=== PATIENT | female | born 1945 | race African-American/Black ===

== ENCOUNTER 2018-11-08 23:14 | Inpatient (IN) | payer MEDICARE, OTHER ==
[~2018-11-08] VITALS: Ht 162.6 cm; Wt 66.7 kg
[~2018-11-08 23:14] MED LIST: BIMA2.5D4 EACHEYE; CHOL100044 GT; DICL30AD TP; MAGN500C4 PO; MECL-109 PO; NEBI5TAB3 PO; OCD PO; OLME40TA11 PO; PROT40 PO
[2018-11-09] MEDS ORDERED: SODIUM CHLORIDE 0.9% 1,000 ML IV ONE (00:42)
[2018-11-09 01:28] LABS: BASOPHILS % 0.5 % (0.0-2.0); EOSINOPHILS % 0.1 % (0.0-5.0); HEMATOCRIT. 41.3 % (36.0-48.0); HEMOGLOBIN. 13.8 g/dL (12.0-16.0); LYMPHOCYTES % 9.3 % (20.0-50.0); MEAN CORPUSCULAR HEMOGLOBIN 29.9 pg (28.0-32.0); MEAN CORPUSCULAR VOLUME 89.2 fL (81.0-99.0); MEAN PLATELET VOLUME 10.2 fl (7.4-10.4); MONOCYTES % 7.9 % (2.0-8.0); NEUTROPHILS % 82.2 % (40.0-76.0); PLATELET 164 x1000/uL (130-400); RED BLOOD CELL COUNT 4.63 mill/uL (4.2-5.4); RED CELL DISTRIBUTION WIDTH 13.6 % (11.6-14.6)
[2018-11-09 01:31] LABS: CHLORIDE 103 mEq/L (98-107)
[2018-11-09] MEDS ORDERED: ASPIRIN 81MG TABLET PO ONE (02:15)
[2018-11-09 02:31] LABS: INR 1.2; PARTIAL THROMBOPLASTIN TIME 28.9 sec (23.4-31.0); PROTHROMBIN TIME 12.3 sec (9.1-11.1)
[2018-11-09 04:04] LABS: CLARITY URINE CLOUDY (CLEAR); COLOR URINE YELLOW (YELLOW); KETONES URINE NEGATIVE (NEGATIVE); LEUKOCYTE ESTERASE URINE NEGATIVE (NEGATIVE); NITRITE URINE NEGATIVE (NEGATIVE); OCCULT BLOOD URINE NEGATIVE (NEGATIVE); PH URINE 6.5 (4.5-8.0); PROTEIN URINE NEGATIVE (NEGATIVE); SPECIFIC GRAVITY URINE 1.012 (1.005-1.030)
[2018-11-09] MEDS ORDERED: ACETAMINOPHEN 500MG TABLET PO ONE (06:15)
[2018-11-09] MEDS ORDERED: MAGNESIUM/ALUMINUM HYDROXIDE/SIMETHICONE 30ML UDC PO PRN (12:00)
[2018-11-09] MEDS ORDERED: DOCUSATE SODIUM 100MG CAPSULE PO PRN (12:00)
[2018-11-09] MEDS ORDERED: CLONIDINE 0.1MG TABLET PO PRN (12:00)
[2018-11-09] MEDS ORDERED: ONDANSETRON HCL 4MG/2ML INJ IV PRN (12:00)
[2018-11-09] MEDS ORDERED: HYDRALAZINE 20MG/ML VIAL IV PRN (12:00)
[2018-11-09] MEDS ORDERED: DIPHENHYDRAMINE 50MG/ML VIAL IV PRN (12:00)
[2018-11-09] MEDS ORDERED: HYDROMORPHONE HCL/PF 2MG/ML CPJ IV PRN (12:00)
[2018-11-09] MEDS ORDERED: LORAZEPAM 2MG/ML CPJ IV PRN (12:00)
[2018-11-09 12:22] VITALS: BP 146/53
[2018-11-09] MEDS: GUAIFENESIN 200MG/10ML SUGAR FREE UDC PO PRN ×2 (14:18→21:01)
[2018-11-09] MEDS: HYDROCODONE/ACETAMINOPHEN 10/325MG TABLET PO PRN (14:19)
[2018-11-09] MEDS: ENOXAPARIN 40MG/0.4ML SYR SUBCUT SCH (14:20)
[2018-11-09] MEDS: SODIUM CHLORIDE 0.9% INJ 3ML FLUSH IVF SCH ×2 (14:21→22:00)
[2018-11-09 16:01] LABS: CREATINE KINASE MB FRACTION 2.1 ng/mL (0.5-3.6)
[2018-11-09] MEDS: LEVOFLOXACIN 500MG PREMIX 100 ML IV SCH (16:14)
[2018-11-09 20:00] VITALS: BP 116/76
[2018-11-09 23:44] LABS: CREATINE KINASE MB FRACTION 1.6 ng/mL (0.5-3.6)
[2018-11-10] VITALS: BP 118/49
[2018-11-10 04:00] VITALS: BP 138/48
[2018-11-10] MEDS: ACETAMINOPHEN 325MG TABLET PO PRN (04:41)
[2018-11-10] MEDS: SODIUM CHLORIDE 0.9% INJ 3ML FLUSH IVF SCH ×3 (04:41→22:55)
[2018-11-10 06:07] LABS: BASOPHILS % 0.3 % (0.0-2.0); EOSINOPHILS % 0.3 % (0.0-5.0); HEMATOCRIT. 35.3 % (36.0-48.0); HEMOGLOBIN. 11.8 g/dL (12.0-16.0); LYMPHOCYTES % 19.1 % (20.0-50.0); MEAN CORPUSCULAR HEMOGLOBIN 29.7 pg (28.0-32.0); MEAN CORPUSCULAR VOLUME 88.8 fL (81.0-99.0); MONOCYTES % 10.5 % (2.0-8.0); NEUTROPHILS % 69.8 % (40.0-76.0); PLATELET 137 x1000/uL (130-400); RED BLOOD CELL COUNT 3.97 mill/uL (4.2-5.4); RED CELL DISTRIBUTION WIDTH 13.9 % (11.6-14.6)
[2018-11-10 06:59] LABS: CHLORIDE 104 mEq/L (98-107)
[2018-11-10 07:10] LABS: LDL CHOLESTEROL 27 mg/dL (5-100)
[2018-11-10 07:11] LABS: HDL CHOLESTEROL 42 mg/dL (40-59); T4 FREE 1.11 ng/dL (0.76-1.46)
[2018-11-10] MEDS ORDERED: REGADENOSON 0.4 MG/5 ML IV SCH (07:30)
[2018-11-10 08:00] VITALS: BP 120/53
[2018-11-10] MEDS ORDERED: ASPIRIN 81MG EC TABLET PO SCH (09:00)
[2018-11-10] MEDS ORDERED: REGADENOSON 0.4 MG/5 ML IV ONE (09:44)
[2018-11-10] MEDS ORDERED: POTASSIUM CHLORIDE 20MEQ TABLET SR PO NR (10:00)
[2018-11-10] MEDS: ASPIRIN 81MG TABLET PO SCH (10:55)
[2018-11-10] MEDS: ENOXAPARIN 40MG/0.4ML SYR SUBCUT SCH (10:56)
[2018-11-10] MEDS: HYDROCODONE/ACETAMINOPHEN 10/325MG TABLET PO PRN (11:14)
[2018-11-10 12:00] VITALS: BP 115/52
[2018-11-10 16:00] VITALS: BP 98/44
[2018-11-10] MEDS: LEVOFLOXACIN 500MG PREMIX 100 ML IV SCH (16:04)
[2018-11-11] VITALS (9 sets, daily range): BP systolic 105–147; BP diastolic 48–77
[2018-11-11] MEDS: ACETAMINOPHEN 325MG TABLET PO PRN (00:12)
[2018-11-11 00:37] LABS: *AMPHETAMINES SCREEN URINE NEGATIVE (NEGATIVE); *BARBITURATES SCREEN URINE NEGATIVE (NEGATIVE)
[2018-11-11 00:38] LABS: *BENZODIAZEPINES SCREEN URINE NEGATIVE (NEGATIVE); *COCAINE SCREEN URINE NEGATIVE (NEGATIVE); CANNABINOID URINE SCREEN NEGATIVE (NEGATIVE); METHADONE URINE SCREEN NEGATIVE (NEGATIVE); OPIATES URINE SCREEN PRESUMTIVE POSITIVE (NEGATIVE); PHENCYCLIDINE URINE SCREEN NEGATIVE (NEGATIVE)
[2018-11-11 01:56] LABS: CREATINE KINASE MB FRACTION 1.2 ng/mL (0.5-3.6)
[2018-11-11 06:49] LABS: CREATINE KINASE 365 IU/L (26-192)
[2018-11-11] MEDS: ASPIRIN 81MG TABLET PO SCH (09:36)
[2018-11-11] MEDS: ENOXAPARIN 40MG/0.4ML SYR SUBCUT SCH (09:36)
[2018-11-11] MEDS: GUAIFENESIN 200MG/10ML SUGAR FREE UDC PO PRN (09:37)
[2018-11-11] MEDS: SODIUM CHLORIDE 0.9% INJ 3ML FLUSH IVF SCH ×2 (14:44→21:46)
[2018-11-11] MEDS: LEVOFLOXACIN 500MG PREMIX 100 ML IV SCH (14:45)
[2018-11-11] MEDS: IPRATROPIUM/ALBUTEROL 0.5-3(2.5)MG/3ML NEB INH PRN (20:39)
[2018-11-12] MEDS: IPRATROPIUM/ALBUTEROL 0.5-3(2.5)MG/3ML NEB INH PRN ×2 (00:27→04:30)
[2018-11-12 04:00] VITALS: BP 142/61
[2018-11-12] MEDS: HYDROCODONE/ACETAMINOPHEN 10/325MG TABLET PO PRN (04:45)
[2018-11-12] MEDS: SODIUM CHLORIDE 0.9% INJ 3ML FLUSH IVF SCH ×2 (05:49→13:05)
[2018-11-12 07:42] LABS: BASOPHILS % 0.6 % (0.0-2.0); EOSINOPHILS % 0.8 % (0.0-5.0); HEMATOCRIT. 35.8 % (36.0-48.0); HEMOGLOBIN. 11.9 g/dL (12.0-16.0); LYMPHOCYTES % 26.2 % (20.0-50.0); MEAN CORPUSCULAR HEMOGLOBIN 29.3 pg (28.0-32.0); MEAN CORPUSCULAR VOLUME 88.1 fL (81.0-99.0); MEAN PLATELET VOLUME 9.2 fl (7.4-10.4); MONOCYTES % 12.8 % (2.0-8.0); NEUTROPHILS % 59.6 % (40.0-76.0); PLATELET 170 x1000/uL (130-400); RED BLOOD CELL COUNT 4.06 mill/uL (4.2-5.4); RED CELL DISTRIBUTION WIDTH 13.6 % (11.6-14.6)
[2018-11-12 08:00] VITALS: BP_SYST 101; BP_SYST 118; BP_SYST 136; BP_DIAS 57; BP_DIAS 63; BP_DIAS 72
[2018-11-12] MEDS: ENOXAPARIN 40MG/0.4ML SYR SUBCUT SCH (09:21)
[2018-11-12] MEDS: ASPIRIN 81MG TABLET PO SCH (09:21)
[2018-11-12 09:56] LABS: CHLORIDE 105 mEq/L (98-107)
[2018-11-12] MEDS ORDERED: POTASSIUM CHLORIDE 20MEQ TABLET SR PO NR (11:15)
[2018-11-12 12:00] VITALS: BP 116/65
[2018-11-12 12:25] VITALS: BP 116/65
[2018-11-12] MEDS ORDERED: LEVOFLOXACIN 500MG TABLET PO SCH (17:00)
== END 2018-11-12 16:22 | disposition home health service (06) | DRG 282 ==
LOC: ER 23:14 → 7WST 11-09 02:28 → EDBEDREQ 11-09 02:30 → EDBEDREQTM 11-09 02:30 → ENRESERV 11-09 10:38
PROVIDERS: ADMIT Internal Medicine; ATTEND Internal Medicine
DX: I21.4 Non-ST elevation (NSTEMI) myocardial infarction (principal); I10 Essential (primary) hypertension; J32.0 Chronic maxillary sinusitis; K21.9 Gastro-esophageal reflux disease without esophagitis; K58.9 Irritable bowel syndrome, unspecified; E87.6 Hypokalemia; R29.6 Repeated falls; M19.071 Primary osteoarthritis, right ankle and foot; I27.20 Pulmonary hypertension, unspecified; M25.571 Pain in right ankle and joints of right foot; R26.81 Unsteadiness on feet; M17.11 Unilateral primary osteoarthritis, right knee; Z79.899 Other long term (current) drug therapy
CPT/HCPCS: 36415; 71045; 73562; 73610; 78452; 80048; 80061; 80305; 82550; 82553; 83036; 83605; 83735; 83880; 84439; 84443; 84484; 85379; 93005; 93017; 93306; 93970; 96360; 97116; 97162; 99285; A9500; C1893; J1650; J1956; J2785; J7030; J7050; J7620